=== PATIENT | female | born 1950 | race Caucasian/White ===

== ENCOUNTER 2020-05-27 02:47 | Outpatient (CLI) | payer MEDICARE, MEDICAID, SELFPAY ==
[2020-05-28 13:48] LABS: SARS-CoV-2 RNA PCR Negative
== END 2020-05-27 02:48 | disposition home or self-care (01) ==
LOC: ANHCOVIDDT 02:48
PROVIDERS: PCP Internal Medicine; Visit Provider Internal Medicine Gastroenterology
DX: Z01.812 Encounter for preprocedural laboratory examination (principal); Z11.59 Encounter for screening for other viral diseases
CPT/HCPCS: 87635; C9803; U0003

== ENCOUNTER 2020-05-30 00:36 | Day surgery (SDC) | payer MEDICARE, MEDICAID, SELFPAY ==
[2020-05-24 15:46] VITALS: BMI 44.3
[2020-05-30 09:05] VITALS: BP 139/66; PULSE 85; RESP 20; TEMP 36.3; O2SAT 98; BMI 44.9
--- NOTE | 2020-05-30 09:33 | PM.HPGS ---
History of Present Illness History of Present Illness Consent: Risks, benefits, and alternatives have been discussed and questions answered. Patient agrees to proceed with procedure. Chief complaint: Blood in Stool Narrative: Irena Dorantes is a 69 year old W female referred for colonoscopy for evaluation of generalized abdominal pain several months duration in addition to blood in her stools. She has had some bright red blood this says her stools are darker than usual. She has had a previous a gastroplasty. She denies any nonsteroidal inflammatory drugs. She is on Effient secondary to previous coronary artery stents. Patient's last colonoscopy was 40 half years ago which time 2 small adenomatous polyps were removed. Patient has CT scan 4 years ago revealing fecal material throughout the colon otherwise was negative. There was a small hiatal hernia. Patient has no upper GI symptoms. [facility] Past Medical History Medical History (Updated 05/30/20 @ 09:36 by Lio Jerome MD) COPD (chronic obstructive pulmonary disease) Degenerative joint disease Diabetes mellitus Dyslipidemia Hypertension Obesity Sleep apnea Surgical History Surgical History (Updated 05/30/20 @ 09:38 by Lio Jerome MD) H/O bilateral cataract extraction History of appendectomy History of dilatation and curettage Status post coronary artery stent placement Status post emergency section Status post gastroplasty Status post total hip replacement, bilateral Family History Family History (Updated 06/12/17 @ 14:02 by DOCTOR UNKNOWN) Other Asthma Family history of Alzheimer's disease Family history of alcoholism Hypertension Social History Social History Smoking status: Never smoker Alcohol intake: never Meds Home Medications and Allergies Home Medications Medication Instructions Recorded Confirmed Type dulaglutide [Trulicity] 1.5 mg SUBCUT WEEKLY 05/24/20 05/24/20 History ezetimibe 10 mg PO DAILY 05/24/20 05/24/20 History insulin regular hum U-500 conc 60 unit SUBCUT BID 05/24/20 05/24/20 History [Humulin R U-500 (Conc) Bushraikpen] nitroglycerin 0.2 mg TRANSDERMAL PRN PRN 05/24/20 05/24/20 History prasugrel [Effient] 10 mg PO DAILY 05/24/20 05/24/20 History ranolazine [Ranexa] 500 mg PO DAILY 05/24/20 05/24/20 History simvastatin 20 mg PO DAILY 05/24/20 05/24/20 History tiotropium bromide [Spiriva with 18 mcg INHALATION DAILY 05/24/20 05/24/20 History HandiHaler] Allergies Allergy/AdvReac Type Severity Reaction Status Date / Time Penicillins Allergy Swelling Verified 05/30/20 09:01 erythromycin base AdvReac infection Verified 05/30/20 09:01 Vital Signs Vital Signs - 24 hr 05/30/20 09:05 Temperature 36.3 C L Pulse Rate 85 Respiratory Rate 20 Blood Pressure 139/66 Pulse Oximetry 98 Exam Const: Orientation/consciousness: patient oriented x3 Resp: Auscultation: clear to auscultation bilaterally Cardio: Rate: regular rate Rhythm: regular rhythm Heart sounds: no murmurs GI: GI Palp: Yes Soft to palpation, No Tenderness to palpation present (GI), Yes No hepatosplenomegaly present and No Palpable mass present Auscultation: normal bowel sounds Neuro: General: patient oriented x3 and no focal motor deficits Extrem: General: no pedal edema Assessment and Plan Additional Plan colonoscopy secondary to generalized abdominal pain hematochezia and dark stools
[2020-05-30] MEDS: LACTATED RINGERS 1,000 ML 150 ML IV CONT (09:40)
--- NOTE | 2020-05-30 09:41 | WPDANESEPPF ---
Anes - Initial Pre Proc Eval Procedure: Operation Date: 05/30/20 10:00 Proposed Procedures p Colonoscopy - Lio Jermoe MD Date/Time: 05/30/20 09:41 Surgeon: Lio Jerome MD Pre Op Diagnosis: Blood in Stool Patient Data Age: 69 Gender: F Height: 5 ft 3 in Weight: 115.2 kg Last Vital Signs Temp 97.4 F L 05/30/20 09:05 Pulse 85 05/30/20 09:05 Resp 20 05/30/20 09:05 BP 139/66 05/30/20 09:05 Pulse Ox 98 05/30/20 09:05 Allergies Allergy/AdvReac Type Severity Reaction Status Date / Time Penicillins Allergy Swelling Verified 05/30/20 09:01 erythromycin base AdvReac infection Verified 05/30/20 09:01 Home Medications Medication Instructions Recorded Confirmed Type dulaglutide [Trulicity] 1.5 mg SUBCUT WEEKLY 05/24/20 05/24/20 History ezetimibe 10 mg PO DAILY 05/24/20 05/24/20 History insulin regular hum U-500 conc 60 unit SUBCUT BID 05/24/20 05/24/20 History [Humulin R U-500 (Conc) Kwikpen] nitroglycerin 0.2 mg TRANSDERMAL PRN PRN 05/24/20 05/24/20 History prasugrel [Effient] 10 mg PO DAILY 05/24/20 05/24/20 History ranolazine [Ranexa] 500 mg PO DAILY 05/24/20 05/24/20 History simvastatin 20 mg PO DAILY 05/24/20 05/24/20 History tiotropium bromide [Spiriva with 18 mcg INHALATION DAILY 05/24/20 05/24/20 History HandiHaler] Patient hx anesthesia problems: none Family hx anesthesia problems: none PMFSH Past Medical History Medical History (Updated 05/30/20 @ 09:36 by Lio Jerome MD) COPD (chronic obstructive pulmonary disease) Degenerative joint disease Diabetes mellitus Dyslipidemia Hypertension Obesity Sleep apnea Surgical History Surgical History (Updated 05/30/20 @ 09:38 by Lio Jerome MD) H/O bilateral cataract extraction History of appendectomy History of dilatation and curettage Status post coronary artery stent placement Status post emergency section Status post gastroplasty Status post total hip replacement, bilateral Family History Family History (Updated 06/12/17 @ 14:02 by DOCTOR UNKNOWN) Other Asthma Family history of Alzheimer's disease Family history of alcoholism Hypertension Social History Social History Smoking status: Never smoker Alcohol intake: never Anes - Eval Final PreProcedure Day of Procedure 05/30/20 09:41 Patient weight: morbidly obese Heart: regular rate and rhythm Lungs: clear to auscultation Airway: Mallampati scale class III Neurological: alert and oriented Last oral intake: >/= 8 hours ASA classification: IV Emergent: no Anesthetic plan: proceed Anesthesia type and monitoring: general GIVS and standard monitoring Informed Consent: The patient's anesthetic plan and its attendant risks and benefits were discussed with the patient/family/POA. Questions were solicited and answers provided to the satisfaction of the patient/family/POA.
--- NOTE | 2020-05-30 11:03 | SUR.OPER ---
9ML NS INJECTED INTO ASCENDING COLON POLYP DURING PROCEDURE
[2020-05-30 11:07] VITALS: BP 100/46; PULSE 79; RESP 21; O2SAT 98
[2020-05-30 11:17] VITALS: BP 100/51; PULSE 77; RESP 21; O2SAT 99
[2020-05-30 11:27] VITALS: BP 105/48; PULSE 74; RESP 25; O2SAT 98
== END 2020-05-30 11:55 | disposition home or self-care (01) ==
PROVIDERS: PCP Internal Medicine; Visit Provider Internal Medicine Gastroenterology
PROC: 0DJD8ZZ Inspection of Lower Intestinal Tract, Via Natural or Artificial Opening Endoscopic (ICD-10-PCS; CPT 45378; principal; 2020-05-30 10:00)
DX: R10.84 Generalized abdominal pain (principal); D12.2 Benign neoplasm of ascending colon; D12.3 Benign neoplasm of transverse colon; K64.4 Residual hemorrhoidal skin tags; K52.9 Noninfective gastroenteritis and colitis, unspecified; I10 Essential (primary) hypertension; E78.5 Hyperlipidemia, unspecified; J44.9 Chronic obstructive pulmonary disease, unspecified; G47.30 Sleep apnea, unspecified; M19.90 Unspecified osteoarthritis, unspecified site; E66.01 Morbid (severe) obesity due to excess calories; Z68.42 Body mass index [BMI] 45.0-49.9, adult; Z79.4 Long term (current) use of insulin; Z95.5 Presence of coronary angioplasty implant and graft
CPT/HCPCS: 45380; 45385; 45381; 88305; J7120

== ENCOUNTER → 2020-06-23 14:03 | Outpatient (CLI) | payer MEDICARE, MEDICAID, SELFPAY ==
--- NOTE | ~2020-06-23 | CT_ITS ---
EXAMINATION: CT abdomen pelvis wo/w con DATE: 06/23/2020 14:33 INDICATION: Left upper quadrant abdominal pain TECHNIQUE: Computed tomography (CT) of the abdomen and pelvis was performed without intravenous contr ast. Automated exposure control and iterative reconstruction technique were employed. The dose-length product was 1739.25 mGy-cm. COMPARISON: None FINDINGS: Mild bibasilar atelectasis most prominent anteriorly at the lingula and right middle lobe. Heart size is normal. Atherosclerotic coronary artery calcification. Small sliding-type hiatal hernia with post operative change of likely Sunil fundoplication. Gallbladder is not visualized and likely surgically absent. Liver, spleen, pancreas, bilateral adrenal glands and kidneys are normal. No abnormal bowel wall thickening or obstruction. Portions of the deep pelvis including the bladder, right ovary and lo wer uterine segment are obscured by metallic streak artifact from bilateral total hip arthroplasty. L eft ovary is unremarkable. No free intraperitoneal gas or fluid. No pathologically enlarged abdominal or pelvic lymphadenopathy. Very thin soft tissue density rim surrounding a 2.5 cm likely epiploic ap pendage at the ascending colon without adjacent inflammatory stranding to suggest epiploic appendagit is. There are bridging osteophytes at multiple levels in the lower thoracic spine, consistent with di ffuse idiopathic skeletal hyperostosis (DISH). IMPRESSION: 1. No acute intra-abdominal/pelvic process. 2. Small sliding-type hiatal hernia with postoperative change of prior Sunil fundoplication. Reviewed, dictated and finalized at location B. IMPRESSION: 1. No acute intra-abdominal/pelvic process. 2. Small sliding-type hiatal hernia with postoperative change of prior Sunil f undoplication.
[2020-06-23 14:20] LABS: Estimated Glomerular Filt Rate > 60
== END ==
PROVIDERS: PCP Internal Medicine; Visit Provider Internal Medicine
DX: R10.9 Unspecified abdominal pain (principal); K44.9 Diaphragmatic hernia without obstruction or gangrene
CPT/HCPCS: 74178; Q9967

== ENCOUNTER 2020-07-29 02:34 | Outpatient (CLI) | payer MEDICARE, MEDICAID, SELFPAY ==
[2020-07-29 23:12] LABS: SARS-CoV-2 RNA PCR Negative
== END 2020-07-29 02:35 | disposition home or self-care (01) ==
LOC: ANHCOVIDDT 02:34
PROVIDERS: PCP Internal Medicine; Visit Provider Internal Medicine Gastroenterology
DX: Z01.812 Encounter for preprocedural laboratory examination (principal); Z20.828 Contact with and (suspected) exposure to other viral communicable diseases
CPT/HCPCS: 87635; C9803; U0003

== ENCOUNTER 2020-08-01 01:00 | Day surgery (SDC) | payer MEDICARE, MEDICAID, SELFPAY ==
[2020-07-27 09:04] VITALS: BMI 44.4
[2020-08-01 09:00] VITALS: BP 143/77; PULSE 88; RESP 16; TEMP 36.2; O2SAT 97; BMI 45.0
--- NOTE | 2020-08-01 09:11 | WPDANESEPPF ---
Anes - Initial Pre Proc Eval Procedure: Operation Date: 08/01/20 09:30 Proposed Procedures p Esophagogastroduodenoscopy - Lio Jerome MD Date/Time: 08/01/20 09:11 Surgeon: Lio Jerome MD Pre Op Diagnosis: abn ct scan Patient Data Age: 69 Gender: F Height: 5 ft 3 in Weight: 115.3 kg Last Vital Signs Temp 36.2 C L 08/01/20 09:00 Pulse 88 08/01/20 09:00 Resp 16 08/01/20 09:00 BP 143/77 H 08/01/20 09:00 Pulse Ox 97 08/01/20 09:00 Allergies Allergy/AdvReac Type Severity Reaction Status Date / Time Penicillins Allergy Swelling Verified 08/01/20 08:56 erythromycin base AdvReac infection Verified 08/01/20 08:56 Home Medications Medication Instructions Recorded Confirmed Type Humulin R U-500 (Conc) Kwikpen 60 unit SUBCUT BID 05/24/20 08/01/20 History Spiriva with HandiHaler 18 mcg INHALATION DAILY 05/24/20 08/01/20 History ezetimibe 10 mg PO DAILY 05/24/20 07/27/20 History nitroglycerin 0.2 mg TRANSDERMAL PRN PRN 05/24/20 07/27/20 History prasugrel [Effient] 10 mg PO DAILY 05/24/20 08/01/20 History ranolazine [Ranexa] 500 mg PO DAILY 05/24/20 08/01/20 History simvastatin 20 mg PO DAILY 05/24/20 08/01/20 History alprazolam 0.25 mg PO BID PRN 07/27/20 07/27/20 History aspirin [Adult Low Dose Aspirin] 81 mg PO DAILY 07/27/20 07/27/20 History exenatide microspheres [Bydureon 2 mg SUBCUT WEEKLY 07/27/20 07/27/20 History BCise] albuterol 90 mcg INHALATION PRN 08/01/20 History Patient hx anesthesia problems: none Family hx anesthesia problems: none PMFSH Past Medical History Medical History COPD (chronic obstructive pulmonary disease) Degenerative joint disease Diabetes mellitus Dyslipidemia Hypertension Obesity Sleep apnea Surgical History Surgical History H/O bilateral cataract extraction History of appendectomy History of dilatation and curettage Status post coronary artery stent placement Status post emergency section Status post gastroplasty Status post total hip replacement, bilateral Family History Family History Other Asthma Family history of Alzheimer's disease Family history of alcoholism Hypertension Social History Social History Smoking status: Former smoker Tobacco type: cigarettes Alcohol intake: never Substance use: never Substance use type: does not use Living arrangements: alone Spiritual care concerns: No Anes - Eval Final PreProcedure Day of Procedure 08/01/20 09:11 Patient weight: morbidly obese Heart: regular rate and rhythm Airway: Mallampati scale class II Neurological: alert and oriented Last oral intake: >/= 8 hours ASA classification: IV Emergent: no Anesthetic plan: proceed Anesthesia type and monitoring: general GIVS and standard monitoring Informed Consent: The patient's anesthetic plan and its attendant risks and benefits were discussed with the patient/family/POA. Questions were solicited and answers provided to the satisfaction of the patient/family/POA.
--- NOTE | 2020-08-01 09:22 | PM.HPGS ---
History of Present Illness History of Present Illness Consent: Risks, benefits, and alternatives have been discussed and questions answered. Patient agrees to proceed with procedure. Chief complaint: abn ct scan Narrative: Irena Dorantes is a 69 year old W female referred for EGD for evaluation of gastroesophageal reflux disease. Patient had CT scans question re- revealed abnormality of thickening of the distal esophagus but all I can find is small hiatal hernia with postoperative change of a Sunil fundoplication. No dysphagia odynophagia. [facility] Past Medical History Medical History COPD (chronic obstructive pulmonary disease) Degenerative joint disease Diabetes mellitus Dyslipidemia Hypertension Obesity Sleep apnea Surgical History Surgical History H/O bilateral cataract extraction History of appendectomy History of dilatation and curettage Status post coronary artery stent placement Status post emergency section Status post gastroplasty Status post total hip replacement, bilateral Family History Family History Other Asthma Family history of Alzheimer's disease Family history of alcoholism Hypertension Social History Social History Smoking status: Former smoker Tobacco type: cigarettes Alcohol intake: never Substance use: never Substance use type: does not use Living arrangements: alone Spiritual care concerns: No Meds Home Medications and Allergies Home Medications Medication Instructions Recorded Confirmed Type Humulin R U-500 (Conc) Kwikpen 60 unit SUBCUT BID 05/24/20 08/01/20 History Spiriva with HandiHaler 18 mcg INHALATION DAILY 05/24/20 08/01/20 History ezetimibe 10 mg PO DAILY 05/24/20 07/27/20 History nitroglycerin 0.2 mg TRANSDERMAL PRN PRN 05/24/20 07/27/20 History prasugrel [Effient] 10 mg PO DAILY 05/24/20 08/01/20 History ranolazine [Ranexa] 500 mg PO DAILY 05/24/20 08/01/20 History simvastatin 20 mg PO DAILY 05/24/20 08/01/20 History alprazolam 0.25 mg PO BID PRN 07/27/20 07/27/20 History aspirin [Adult Low Dose Aspirin] 81 mg PO DAILY 07/27/20 07/27/20 History exenatide microspheres [Bydureon 2 mg SUBCUT WEEKLY 07/27/20 07/27/20 History BCise] albuterol 90 mcg INHALATION PRN 08/01/20 History Allergies Allergy/AdvReac Type Severity Reaction Status Date / Time Penicillins Allergy Swelling Verified 08/01/20 08:56 erythromycin base AdvReac infection Verified 08/01/20 08:56 Vital Signs Vital Signs - 24 hr 08/01/20 09:00 Temperature 36.2 C L Pulse Rate 88 Respiratory Rate 16 Blood Pressure 143/77 H Pulse Oximetry 97 Exam Const: Orientation/consciousness: patient oriented x3 Resp: Auscultation: clear to auscultation bilaterally Cardio: Rate: regular rate Rhythm: regular rhythm Heart sounds: no murmurs GI: GI Palp: Yes Soft to palpation, No Tenderness to palpation present (GI), Yes No hepatosplenomegaly present and No Palpable mass present Auscultation: normal bowel sounds Neuro: General: patient oriented x3 and no focal motor deficits Extrem: General: no pedal edema Assessment and Plan Additional Plan EGD for evaluation of chronic gastroesophageal reflux disease and abnormal CT scan
[2020-08-01] MEDS: LACTATED RINGERS 1,000 ML 150 ML IV CONT (09:24)
[2020-08-01 09:29] LABS: Glucose Point of Care 315 (65-105)
[2020-08-01 09:29] LABS: Glucose Point of Care 299 (65-105)
[2020-08-01 10:30] VITALS: BP 119/59; PULSE 79; RESP 24; O2SAT 98
[2020-08-01 10:40] VITALS: BP 128/65; PULSE 77; RESP 20; O2SAT 97
[2020-08-01 10:43] LABS: Glucose Point of Care 271 (65-105)
[2020-08-01 11:00] VITALS: BP 131/62; PULSE 71; RESP 17; O2SAT 97
== END 2020-08-01 11:15 | disposition home or self-care (01) ==
PROVIDERS: PCP Internal Medicine; Visit Provider Internal Medicine Gastroenterology
PROC: 0DJ08ZZ Inspection of Upper Intestinal Tract, Via Natural or Artificial Opening Endoscopic (ICD-10-PCS; CPT 43235; principal; 2020-08-01 09:30)
DX: K21.00 Gastro-esophageal reflux disease with esophagitis, without bleeding (principal); K44.9 Diaphragmatic hernia without obstruction or gangrene; K31.7 Polyp of stomach and duodenum; K29.50 Unspecified chronic gastritis without bleeding; I10 Essential (primary) hypertension; E78.5 Hyperlipidemia, unspecified; J44.9 Chronic obstructive pulmonary disease, unspecified; E11.9 Type 2 diabetes mellitus without complications; G47.30 Sleep apnea, unspecified; M19.90 Unspecified osteoarthritis, unspecified site; Z79.4 Long term (current) use of insulin; Z79.82 Long term (current) use of aspirin; Z79.02 Long term (current) use of antithrombotics/antiplatelets; Z95.5 Presence of coronary angioplasty implant and graft; Z87.891 Personal history of nicotine dependence; E66.01 Morbid (severe) obesity due to excess calories; Z68.42 Body mass index [BMI] 45.0-49.9, adult
CPT/HCPCS: 43239; 87081; 88305; 88342; J2704; J7120

== ENCOUNTER → 2020-08-30 13:41 | Outpatient (CLI) | payer MEDICARE, MEDICAID, SELFPAY ==
--- NOTE | ~2020-08-30 | XR_ITS ---
EXAMINATION: XR knee RT 3V DATE: 08/30/2020 14:17 INDICATION: Right knee pain. TECHNIQUE: 3 views of right knee were obtained. COMPARISON: None. FINDINGS: Bone alignment is normal. No fracture. There is mild tricompartmental osteoarthritis. No kn ee joint effusion. IMPRESSION: 1. Mild right knee osteoarthritis. Reviewed, dictated and finalized at location B. [employer]
== END ==
PROVIDERS: PCP Internal Medicine; Visit Provider Internal Medicine
DX: M17.11 Unilateral primary osteoarthritis, right knee (principal)
CPT/HCPCS: 73562

== ENCOUNTER 2022-05-02 10:30 | Outpatient (CLI) | payer MEDICARE, MEDICAID, SELFPAY ==
--- NOTE | 2022-05-02 11:30 | NEURO_ITS ---
Impression: # Complains of numbness of hands. # Carpal Tunnel Syndrome of mild degree, right more than left. # Left ulnar neuropathy across the elbow. # Normal needle/EMG exam. # Clinical correlation recommended. Nerve Conduction Studies Anti Sensory Summary Table Stim Site NR Peak (ms) P-T Amp (?V) Site1 Site2 Delta-P (ms) Dist (cm) Jasbir (m/s) Left Median Anti Sensory (2-3nd Digit) Wrist 4.2 21.4 Wrist 2-3nd Digit 4.2 14.0 33 Wrist 3.9 38.9 Wrist 2-3nd Digit 4.2 14.0 33 Right Median Anti Sensory (2-3nd Digit) Wrist 5.1 43.2 Wrist 2-3nd Digit 5.1 14.0 27 Wrist 7.4 35.1 Wrist 2-3nd Digit 5.1 14.0 27 Left Radial Anti Sensory (Base 1st Digit) Wrist 3.3 20.6 Wrist Base 1st Digit 3.3 0.0 Right Radial Anti Sensory (Base 1st Digit) Wrist 2.8 8.2 Wrist Base 1st Digit 2.8 0.0 Left Ulnar Anti Sensory (5th Digit) Wrist 2.6 28.0 Wrist 5th Digit 2.6 14.0 54 Right Ulnar Anti Sensory (5th Digit) Wrist 3.2 37.4 Wrist 5th Digit 3.2 14.0 44 Motor Summary Table Stim Site NR Onset (ms) O-P Amp (mV) Site1 Site2 Delta-0 (ms) Dist (cm) Jasbir (m/s) Left Median Motor (Abd Poll Brev) Wrist 3.9 2.1 Elbow Wrist 4.5 27.0 60 Elbow 8.4 2.0 Right Median Motor (Abd Poll Brev) Wrist 4.2 2.2 Elbow Wrist 4.3 26.0 60 Elbow 8.5 2.1 Left Ulnar Motor (Abd Dig Minimi) Wrist 2.4 6.1 A Elbow Wrist 5.5 28.0 51 A Elbow 7.9 5.8 B Elbow Wrist 3.8 21.0 55 B Elbow 6.2 4.6 Right Ulnar Motor (Abd Dig Minimi) Wrist 2.3 7.4 A Elbow Wrist 4.7 27.0 57 A Elbow 7.0 6.3 F Wave Studies NR F-Lat (ms) L-R F-Lat (ms) Left Median (Mrkrs) (Abd Poll Brev) 27.95 1.83 Right Median (Mrkrs) (Abd Poll Brev) 26.12 1.83 Left Ulnar (Mrkrs) (Abd Dig Min) 26.59 1.40 Right Ulnar (Mrkrs) (Abd Dig Min) 27.99 1.40 EMG Side Muscle Nerve Root Ins Act Fibs Amp Dur Recrt Comment Right 1stDorInt Ulnar C8-T1 Nml Nml Nml Nml Nml Right Ext Indicis Radial (Post Int) C7-8 Nml Nml Nml Nml Nml Right Ext Digitorum Radial (Post Int) C7-8 Nml Nml Nml Nml Nml Right BrachioRad Radial C5-6 Nml Nml Nml Nml Nml Right PronatorTeres Median C6-7 Nml Nml Nml Nml Nml Right Abd Poll Brev Median C8-T1 Nml Nml Nml Nml Nml Left 1stDorInt Ulnar C8-T1 Nml Nml Nml Nml Nml Left Ext Indicis Radial (Post Int) C7-8 Nml Nml Nml Nml Nml Left Ext Digitorum Radial (Post Int) C7-8 Nml Nml Nml Nml Nml Left BrachioRad Radial C5-6 Nml Nml Nml Nml Nml Left PronatorTeres Median C6-7 Nml Nml Nml Nml Nml Left Abd Poll Brev Median C8-T1 Nml Nml Nml Nml Nml MTDD
== END 2022-05-02 10:31 | disposition home or self-care (01) ==
PROVIDERS: PCP Internal Medicine; Visit Provider Orthopaedic Surgery
DX: G56.03 Carpal tunnel syndrome, bilateral upper limbs (principal); G56.22 Lesion of ulnar nerve, left upper limb; R20.0 Anesthesia of skin
CPT/HCPCS: 95886; 95911

== ENCOUNTER 2022-07-04 00:25 | Day surgery (SDC) | payer MEDICARE, MEDICAID, SELFPAY ==
[2022-06-28 14:30] VITALS: BMI 48.3
[2022-07-04 09:30] VITALS: BP 114/90; PULSE 108; RESP 28; TEMP 35.9; O2SAT 97; BMI 47.2
--- NOTE | 2022-07-04 09:42 | WPDANESEPPF ---
Anes - Initial Pre Proc Eval Procedure: Operation Date: 07/04/22 10:30 Proposed Procedures p Colonoscopy - Krzysztof Burger MD Date/Time: 07/04/22 09:42 Surgeon: Krzysztof Burger MD Pre Op Diagnosis: change in bowel habits Patient Data Age: 71 Gender: F Height: 1.57 m Weight: 117.1 kg Last Vital Signs Temp 35.9 C L 07/04/22 09:30 Pulse 108 H 07/04/22 09:30 Resp 28 H 07/04/22 09:30 BP 114/90 07/04/22 09:30 Pulse Ox 97 07/04/22 09:30 O2 Del Method Room Air 07/04/22 09:30 Allergies Allergy/AdvReac Type Severity Reaction Status Date / Time Penicillins Allergy Swelling Verified 07/04/22 09:29 erythromycin base AdvReac infection Verified 07/04/22 09:29 Home Medications Medication Instructions Recorded Confirmed Type ezetimibe 10 mg tablet 10 mg PO DAILY 05/24/20 07/04/22 History insulin regular hum U-500 conc 500 60 unit subcut BID 05/24/20 07/04/22 History unit/mL(3 mL) subcut pen (Humulin R U-500 (Conc) Insulin Kwikpen) nitroglycerin 0.2 mg/hr 0.2 mg transdermal PRN PRN Chest 05/24/20 07/04/22 History transdermal 24 hour patch Pain prasugrel 10 mg tablet (Effient) 10 mg PO DAILY 05/24/20 07/04/22 History ranolazine 500 mg tablet,extended 500 mg PO DAILY 05/24/20 07/04/22 History release,12 hr (Ranexa) simvastatin 20 mg tablet 20 mg PO DAILY 05/24/20 07/04/22 History tiotropium bromide 18 mcg capsule 18 mcg inhalation DAILY 05/24/20 07/04/22 History with inhalation device (Spiriva with HandiHaler) alprazolam 0.25 mg tablet 0.25 mg PO BID PRN Anxiety 07/27/20 07/04/22 History aspirin 81 mg tablet,delayed 81 mg PO DAILY 07/27/20 07/04/22 History release (Adult Low Dose Aspirin) albuterol 90 mcg/actuation aerosol 90 mcg inhalation PRN PRN .asthma 08/01/20 07/04/22 History inhaler tramadol 50 mg tablet 50 mg PO BID PRN Pain 06/28/22 07/04/22 History Patient hx anesthesia problems: none Family hx anesthesia problems: none Results Review: All pre-operative results and documents have been reviewed as part of the pre-operative evaluation. [facility] Past Medical History Medical History COPD (chronic obstructive pulmonary disease) Degenerative joint disease Diabetes mellitus Dyslipidemia Hypertension Obesity Sleep apnea Surgical History Surgical History H/O bilateral cataract extraction History of appendectomy History of dilatation and curettage Status post coronary artery stent placement Status post emergency section Status post gastroplasty Status post total hip replacement, bilateral Family History Family History Other Asthma Family history of Alzheimer's disease Family history of alcoholism Hypertension Social History Social History Years smoked: 5 Smoking status: Former smoker Tobacco type: cigarettes Alcohol intake: never Substance use: never Substance use type: does not use Living arrangements: with family Spiritual care concerns: No Anes - Eval Final PreProcedure Day of Procedure 07/04/22 09:42 Patient weight: morbidly obese Heart: regular rate and rhythm Lungs: clear to auscultation Airway: Mallampati scale class II Neurological: alert and oriented Last oral intake: >/= 8 hours ASA classification: IV Emergent: no Anesthetic plan: proceed Anesthesia type and monitoring: general GIVS and standard monitoring Results Review: All pre-operative results and documents have been reviewed as part of the pre-operative evaluation. Informed Consent: The patient's anesthetic plan and its attendant risks and benefits were discussed with the patient/family/POA. Questions were solicited and answers provided to the satisfaction of the patient/family/POA.
--- NOTE | 2022-07-04 09:48 | PM.HPGS ---
History of Present Illness History of Present Illness Consent: Risks, benefits, and alternatives have been discussed and questions answered. Patient agrees to proceed with procedure. Chief complaint: change in bowel habits Narrative: Irena Dorantes is a 71 year old female Was referred for colon cancer screening. She has had polyps removed on several occasions. She has had a tendency to have constipation. Review of Systems Review of Systems: All systems reviewed & are unremarkable except as noted in HPI and below PMFSH Past Medical History Medical History COPD (chronic obstructive pulmonary disease) Degenerative joint disease Diabetes mellitus Dyslipidemia Hypertension Obesity Sleep apnea Surgical History Surgical History H/O bilateral cataract extraction History of appendectomy History of dilatation and curettage Status post coronary artery stent placement Status post emergency section Status post gastroplasty Status post total hip replacement, bilateral Family History Family History Other Asthma Family history of Alzheimer's disease Family history of alcoholism Hypertension Social History Social History Years smoked: 5 Smoking status: Former smoker Tobacco type: cigarettes Alcohol intake: never Substance use: never Substance use type: does not use Living arrangements: with family Spiritual care concerns: No Meds Home Medications and Allergies Home Medications Medication Instructions Recorded Confirmed Type ezetimibe 10 mg tablet 10 mg PO DAILY 05/24/20 07/04/22 History insulin regular hum U-500 conc 500 60 unit subcut BID 05/24/20 07/04/22 History unit/mL(3 mL) subcut pen (Humulin R U-500 (Conc) Insulin Kwikpen) nitroglycerin 0.2 mg/hr 0.2 mg transdermal PRN PRN Chest 05/24/20 07/04/22 History transdermal 24 hour patch Pain prasugrel 10 mg tablet (Effient) 10 mg PO DAILY 05/24/20 07/04/22 History ranolazine 500 mg tablet,extended 500 mg PO DAILY 05/24/20 07/04/22 History release,12 hr (Ranexa) simvastatin 20 mg tablet 20 mg PO DAILY 05/24/20 07/04/22 History tiotropium bromide 18 mcg capsule 18 mcg inhalation DAILY 05/24/20 07/04/22 History with inhalation device (Spiriva with HandiHaler) alprazolam 0.25 mg tablet 0.25 mg PO BID PRN Anxiety 07/27/20 07/04/22 History aspirin 81 mg tablet,delayed 81 mg PO DAILY 07/27/20 07/04/22 History release (Adult Low Dose Aspirin) albuterol 90 mcg/actuation aerosol 90 mcg inhalation PRN PRN .asthma 08/01/20 07/04/22 History inhaler tramadol 50 mg tablet 50 mg PO BID PRN Pain 06/28/22 07/04/22 History Allergies Allergy/AdvReac Type Severity Reaction Status Date / Time Penicillins Allergy Swelling Verified 07/04/22 09:29 erythromycin base AdvReac infection Verified 07/04/22 09:29 Vital Signs Vital Signs - 24 hr 07/04/22 09:30 Temperature 35.9 C L Pulse Rate 108 H Respiratory Rate 28 H Blood Pressure 114/90 Pulse Oximetry 97 Oxygen Delivery Room Air Exam Const: General: alert Nutritional Appearance: obese Orientation/consciousness: patient oriented x3 Resp: Auscultation: clear to auscultation bilaterally Cardio: Rhythm: regular rhythm GI: GI Palp: Yes Soft to palpation and No Tenderness to palpation present (GI) Neuro: General: patient oriented x3 Assessment and Plan Assessment and plan (1) Colon cancer screening: Code(s): Z12.11 - Encounter for screening for malignant neoplasm of colon Status: Acute Assessment and Plan: Colonoscopy with possible biopsy or polypectomy or cautery or injection of substances.
[2022-07-04] MEDS: LACTATED RINGERS 1,000 ML 150 ML IV CONT (09:49)
[2022-07-04 09:50] LABS: Glucose Point of Care 248 mg/dl (65-105)
--- NOTE | 2022-07-04 09:50 | SUR.PREOP ---
BS 248 Diane LUMBER SORTER made aware.
[2022-07-04 10:51] VITALS: BP 90/49; PULSE 78; RESP 25; O2SAT 100
[2022-07-04 11:01] VITALS: BP 102/49; PULSE 80; RESP 16; O2SAT 96
[2022-07-04 11:11] VITALS: BP 118/50; PULSE 79; RESP 20; O2SAT 97
[2022-07-04 11:25] LABS: Glucose Point of Care 223 mg/dl (65-105)
== END 2022-07-04 11:32 | disposition home or self-care (01) ==
PROVIDERS: PCP Internal Medicine; Visit Provider Internal Medicine Gastroenterology
PROC: 0DJD8ZZ Inspection of Lower Intestinal Tract, Via Natural or Artificial Opening Endoscopic (ICD-10-PCS; CPT 45378; principal; 2022-07-04 10:30)
DX: Z12.11 Encounter for screening for malignant neoplasm of colon (principal); D12.4 Benign neoplasm of descending colon; K57.30 Diverticulosis of large intestine without perforation or abscess without bleeding; J44.9 Chronic obstructive pulmonary disease, unspecified; E11.9 Type 2 diabetes mellitus without complications; I10 Essential (primary) hypertension; E78.5 Hyperlipidemia, unspecified; G47.30 Sleep apnea, unspecified; E66.01 Morbid (severe) obesity due to excess calories; Z68.42 Body mass index [BMI] 45.0-49.9, adult; Z95.5 Presence of coronary angioplasty implant and graft; Z87.891 Personal history of nicotine dependence; Z79.4 Long term (current) use of insulin; Z79.51 Long term (current) use of inhaled steroids; Z79.82 Long term (current) use of aspirin
CPT/HCPCS: 45380; 82948; 88305; J2704; J7120

== ENCOUNTER → 2022-07-11 12:16 | Outpatient (CLI) | payer MEDICARE, MEDICAID, SELFPAY ==
--- NOTE | ~2022-07-11 | DEXA_ITS ---
Bone Density Report Name: JASMEET MACHADO Age: 71 Sex: Female Ethnicity: White Date of : 1950 Indication: postmenopausal; screening for osteoporosis; height loss; history of glucocorticoids; asthma or emphysema; Referring Provider: TARUN, DAVID Sanchez Study: Bone densitometry was performed. Exam Date: July 11, 2022 Accession number: [id number] Bone Density: Region BMD T-score Z-score Classification AP Spine (L2, L3, L4) 1.168 0.8 3.0 Normal World Health Organization criteria for BMD impression classify patients as: Normal (T-score at or above -1.0), Osteopenia (T-score between -1.0 and -2.5), or Osteoporosis (T-score at or below -2.5). Clinical Information Provided by Patient: Has taken Glucocorticoids Has the following medical conditions: Asthma or Emphysema Patient maximum height was 63.5 Menopause Age: 28 No regular weight bearing exercise Does not regularly consume dairy products Onset of menses at age 14 Number of children 3 Missed period for more than 6 months in a row Impression: The patient has normal bone mass. The patient has risk factors, including: history of glucocorticoid therapy. Discussion: LOW RISK OF FRACTURE; BONE DENSITY IS WELL ABOVE THE MINIMUM DESIRABLE LEVEL AND ABOVE AVERAGE FOR AGE AND SEX AT ALL SKELETAL SITES TESTED. This person's bone density is above expected limits for age and sex. This is rarely clinically significant, but should be pursued if there are significant musculoskeletal complaints. The patient should follow a healthful lifestyle (good nutrition with adequate calcium and vitamin D, and appropriate weight-bearing exercise). Follow-Up: Consider repeating this study in 5 years or sooner if there is some new clinical indication. Reported by: [facility] on 07/11/2022 1:17:00 PM. Reviewed, dictated and finalized at location AGeraldo REINOSO
--- NOTE | ~2022-07-11 | MM_ITS ---
EXAMINATION: MM screening [facility] BI w jonn HISTORY: Screening mammogram TECHNIQUE: Craniocaudal and mediolateral oblique 3-D tomosynthesis images were obtained and synthetic 2-D images were generated. CAD analysis was submitted and interpreted. COMPARISON: No prior mammogram is available for comparison at this institution. BREAST PARENCHYMAL COMPOSITION: The breasts are almost entirely fatty. FINDINGS: There is no suspicious mass, calcification, or architectural distortion to suggest malignan cy in either breast. IMPRESSION: 1. No mammographic evidence of malignancy. 2. Recommend routine screening mammography in one year. BI-RADS Category 1: Negative Reviewed, dictated and finalized at location A.
== END ==
PROVIDERS: PCP Internal Medicine; Visit Provider Internal Medicine
DX: Z12.31 Encounter for screening mammogram for malignant neoplasm of breast (principal); Z78.0 Asymptomatic menopausal state
CPT/HCPCS: 77063; 77067; 77080

== ENCOUNTER 2023-11-29 12:48 | Outpatient (CLI) | payer MEDICARE, MEDICAID, SELFPAY ==
--- NOTE | ~2023-11-29 | CT_ITS ---
EXAMINATION: CT abdomen wo/w con DATE: 11/29/2023 13:42 INDICATION: Adrenal mass. TECHNIQUE: Computed tomography (CT) of the abdomen was performed without and with 100 mL Omnipaque 35 0 intravenous contrast. Automated exposure control and iterative reconstruction technique were employ ed. The dose-length product was 2099.82 mGy-cm. COMPARISON: CT abdomen and pelvis 06/23/2020 FINDINGS: The visualized portions of the lung bases demonstrate mild atelectasis. There are groundgla ss opacities and small airspace opacities in right lower lobe and right middle lobe, consistent with mild infection. No pleural effusion. There is a small sliding hernia. There are surgical changes in t he stomach. The liver, spleen, pancreas, and left adrenal gland are normal. There is a 14 mm mass in right adrenal gland measuring 8 HU on noncontrast images, consistent with an adenoma. The kidneys are normal. There are bridging endplate osteophytes at multiple levels in the spine, consistent with dif fuse idiopathic skeletal hyperostosis (DISH). There is severe lower lumbar spondylosis. IMPRESSION: 1. 14 mm right adrenal adenoma, stable from 06/23/2020. Reviewed, dictated and finalized at location E. [facility]
[2023-11-29 13:09] LABS: Estimated Glomerular Filt Rate > 60
== END 2023-11-29 12:49 ==
PROVIDERS: PCP Internal Medicine; Visit Provider Internal Medicine
DX: R19.09 Other intra-abdominal and pelvic swelling, mass and lump (principal)
CPT/HCPCS: 74170; Q9967

== ENCOUNTER 2025-04-29 13:42 | Outpatient (CLI) | payer MEDICARE, SELFPAY ==
--- NOTE | ~2025-04-29 | DEXA_ITS ---
Bone Density Report Name: JASMEET MACHADO Age: 74 Sex: Female Ethnicity: White Date of : 1950 Indication: postmenopausal; screening for osteoporosis; height loss; asthma or emphysema; Referring Provider: FAZAL, NISSA Green Study: Bone densitometry was performed. Exam Date: April 29, 2025 Accession number: [id number] Bone Density: Region BMD T-score Z-score Classification AP Spine(L2, L3, L4) 1.250 1.6 4.0 Normal World Health Organization criteria for BMD impression classify patients as: Normal (T-score at or above -1.0), Osteopenia (T-score between -1.0 and -2.5), or Osteoporosis (T-score at or below -2.5). Previous Exams: -- Region Exam Age BMD T-score BMD Change BMD Change Date g/cm2 vs Baseline vs Previous -- AP Spine (L2-L4) 04/29/2025 74 1.250 1.6 7.0%* 7.0%* 07/11/2022 71 1.168 0.8 -- *Denotes significance at 95% confidence level, LSC for AP Spine = 0.022 g/cm2 Clinical Information Provided by Patient: Has the following medical conditions: Asthma or Emphysema Patient maximum height was 63.5 Menopause Age: 28 No regular weight bearing exercise Does not regularly consume dairy products Onset of menses at age 14 Number of children 3 Impression: The patient has normal bone mass. No significant bone loss was observed. Discussion: LOW RISK OF FRACTURE; BONE DENSITY IS WELL ABOVE THE MINIMUM DESIRABLE LEVEL AND ABOVE AVERAGE FOR AGE AND SEX AT ALL SKELETAL SITES TESTED. This person's bone density is above expected limits for age and sex. This is rarely clinically significant, but should be pursued if there are significant musculoskeletal complaints. The patient should follow a healthful lifestyle (good nutrition with adequate calcium and vitamin D, and appropriate weight-bearing exercise). Follow-Up: Consider repeating this study in 5 years or sooner if there is some new clinical indication. Reported by: LOWELL on 04/29/2025 2:13:00 PM. Reviewed, dictated and finalized at location A.
== END 2025-04-29 13:43 | disposition home or self-care (01) ==
LOC: MICIMG 13:45
PROVIDERS: PCP Internal Medicine; Visit Provider Nurse Practitioner
DX: Z13.820 Encounter for screening for osteoporosis (principal); Z78.0 Asymptomatic menopausal state
CPT/HCPCS: 77080

== ENCOUNTER 2025-05-25 15:32 | Outpatient (CLI) | payer MEDICARE, SELFPAY ==
--- NOTE | ~2025-05-25 | MM_ITS ---
EXAMINATION: MM screening [facility] BI w jonn HISTORY: Screening TECHNIQUE: Craniocaudal and mediolateral oblique 3-D tomosynthesis images were obtained and synthetic 2-D images were generated. CAD analysis was submitted and interpreted. COMPARISON: 07/11/2022. BREAST PARENCHYMAL COMPOSITION: The breasts are almost entirely fatty. FINDINGS: There is no evidence of suspicious mass, calcification, or architectural distortion to sug gest malignancy in either breast. IMPRESSION: 1. No mammographic evidence of malignancy. 2. Recommend routine screening mammography in one year. BI-RADS Category 1: Negative Reviewed, dictated and finalized at location B.
== END 2025-05-25 15:33 | disposition home or self-care (01) ==
PROVIDERS: PCP Internal Medicine; Visit Provider Internal Medicine
DX: Z12.31 Encounter for screening mammogram for malignant neoplasm of breast (principal)
CPT/HCPCS: 77063; 77067